=== PATIENT | male | born 1965 | race Caucasian/White ===

== ENCOUNTER 2022-02-18 23:47 | Emergency (ER) | payer BC ==
[~2022-02-18] VITALS: Ht 170.2 cm; Wt 83.9 kg
[2022-02-18 23:50] VITALS: BP_SYST 135
--- NOTE | 2022-02-18 23:57 | NUR ---
RECEIVED PT ACCOMPANIED BY HIS DAUGHTER C/O SOB AND LIGHTHEADED AT HOME, PER DAUGHTER THEY WERE TOLD TO GO TO ER IF SPO2 IS 94%. PT DENIES CHESTPAIN, HE STATED THAT HE HAS DRY MOUTH X1 HR. PMH:HYPERLIPIDEMIA PT AAOX4, NO SOB NOTED, PENDING MD PRASAD
--- NOTE | 2022-02-19 01:52 | NUR ---
Patient to ER bed 8 to gown for evaluation. Side rails up.
--- NOTE | 2022-02-19 02:25 | NUR ---
Report given to Devora CUEVA
--- NOTE | 2022-02-19 02:30 | NUR ---
FILIPE Oliver at bedside examining patient.
[2022-02-19 03:20] LABS: EOSINOPHILS # (AUTO) 0.1 K/uL (0.0-0.4); HEMATOCRIT 39.1 % (36-54); MEAN CORPUSCULAR VOLUME 87 fL (79.0-98.0); MONOCYTES # (AUTO) 0.3 K/uL (0.0-1.0); RED BLOOD CELL COUNT(AUTO) 4.47 MIL/uL (4.2-6.2); WHITE BLOOD COUNT (AUTO) 5.9 K/uL (4.8-10.8)
[2022-02-19 03:23] LABS: ANION GAP 5 (5-15); CALCIUM 8.5 mg/dL (8.4-11.0); CHLORIDE 106 mmol/L (98-107); CREATININE 1.01 mg/dL (0.55-1.30); GLUCOSE 124 mg/dL (70-99); POTASSIUM 4.1 mmol/L (3.5-5.1); UREA NITROGEN, BLOOD 23 mg/dL (8-21)
[2022-02-19 03:24] LABS: BASOPHILS % (AUTO) 0.7 % (0.0-2.0); EOSINOPHILS % (AUTO) 1.4 % (0.0-4.0); LYMPHOCYTES # (AUTO) 1.2 K/uL (1.0-5.5); LYMPHOCYTES % (AUTO) 19.9 % (20.5-51.5); MONOCYTES % (AUTO) 5.5 % (1.7-9.3); NEUTROPHILS # (AUTO) 4.3 K/uL (1.8-7.7); NEUTROPHILS % (AUTO) 72.5 % (40.0-70.0); PLATELET COUNT (AUTO) 112 K/uL (130-430)
[2022-02-19 03:34] LABS: ALANINE AMINOTRANSFERASE 30 U/L (12-78); ALBUMIN 3.6 g/dL (3.4-4.8); ASPARTATE AMINOTRANSFERASE 19 U/L (10-37); TOTAL BILIRUBIN 0.5 mg/dL (0.0-1.0)
[2022-02-19 03:36] LABS: GFR AFRICAN AMERICAN 98 mL/min (>90)
--- NOTE | 2022-02-19 04:20 | NUR ---
Patient given written and verbal discharge instructions and verbalizes understanding. ER MD discussed with patient the results and treatment provided. Patient in stable condition. ID arm band removed. Patient educated on pain management and to follow up with PMD. Pain Scale 0/10. Opportunity for questions provided and answered. Medication side effect fact sheet provided.
== END 2022-02-19 04:20 | disposition home or self-care (01) ==
LOC: SED 23:47
DX: F41.9 Anxiety disorder, unspecified (principal); E78.00 Pure hypercholesterolemia, unspecified; Z79.899 Other long term (current) drug therapy
CPT/HCPCS: 36415; 71045; 80053; 82962; 83880; 84484; 85025; 85379; 99284